=== PATIENT | male | born 1995 | race Caucasian/White ===

== ENCOUNTER 2016-11-08 11:53 | Day surgery (SDC) | payer OTHER ==
[2016-11-08] VITALS (7 sets, daily range): BP systolic 119–155; BP diastolic 66–99; PULSE 75–100; RESP 14–20; Ht 177.8 cm; Wt 86.2 kg
[~2016-11-08] VITALS: Ht 177.8 cm; Wt 86.2 kg
[2016-11-08] MEDS ORDERED: ONDANSETRON 4 MG INJ ONE (12:59)
[2016-11-08] MEDS ORDERED: METOCLOPRAMIDE 10 MG INJ ONE (12:59)
[2016-11-08] MEDS ORDERED: ROCURONIUM 50 MG INJ ONE (12:59)
[2016-11-08] MEDS ORDERED: SUCCINYLCHOLINE CHLORIDE 100 MG/5 ML SYG IV ONE (12:59)
[2016-11-08] MEDS ORDERED: FENTAnyl 50 MCG/ML VIAL ONE (12:59)
[2016-11-08] MEDS ORDERED: PROPOFOL 20 ML ONE (12:59)
[2016-11-08] MEDS ORDERED: FENTAnyl 50 MCG/ML VIAL IV PRN ×2 (13:00)
[2016-11-08] MEDS ORDERED: HYDROmorphONE (0.2 MG/ML) 10ML SYG IV PRN ×3 (13:00)
[2016-11-08] MEDS ORDERED: ONDANSETRON 4 MG INJ IV PRN (13:00)
[2016-11-08] MEDS ORDERED: MEPERIDINE 25 MG INJ IV PRN (13:00)
[2016-11-08] MEDS ORDERED: morphine 2 MG INJ IV PRN (14:00)
[2016-11-09] MEDS ORDERED: HYDR-902 PO (06:26)
[2016-11-09] MEDS ORDERED: ONDA4TAB95 PO (06:26)
[2016-11-09] MEDS ORDERED: ACET-141 PO (06:26)
[2016-11-09] MEDS ORDERED: HYDR-906 PO (06:44)
[2016-11-09] MEDS ORDERED: ONDA4TAB11 PO (08:15)
[2016-11-09] MEDS ORDERED: NAPR-260 PO (08:15)
== END 2016-11-08 15:55 | disposition home or self-care (01) ==
LOC: SDS 11:53
PROVIDERS: ATTEND Otolaryngology
DX: J35.01 Chronic tonsillitis (principal)
CPT/HCPCS: 42821; 88304; J2175; J2270; J2405; J2765; J3010; J7999

== ENCOUNTER 2016-11-09 05:25 | Emergency (ER) | payer OTHER ==
[~2016-11-09] VITALS: Ht 177.8 cm; Wt 86.5 kg
[2016-11-09 05:29] VITALS: Ht 177.8 cm; Wt 86.5 kg
[2016-11-09 05:42] VITALS: TEMP 99
[2016-11-09] MEDS ORDERED: KETOROLAC 30 MG INJ IV STA (06:15)
[2016-11-09] MEDS ORDERED: ONDANSETRON 4 MG INJ IV STA (06:16)
[2016-11-09] MEDS ORDERED: HYDR-902 PO (06:26)
[2016-11-09] MEDS ORDERED: ONDA4TAB95 PO (06:26)
[2016-11-09] MEDS ORDERED: ACET-141 PO (06:26)
[2016-11-09] MEDS ORDERED: FLUTICASONE 0.05% 16 GM NAS SPRAY NASAL ONE (06:30)
[2016-11-09] MEDS ORDERED: HYDROCODONE/APAP (5/325) TAB PO ONE (06:30)
[2016-11-09] MEDS ORDERED: HYDR-906 PO (06:44)
[2016-11-09] MEDS ORDERED: NAPR-260 PO (08:15)
[2016-11-09] MEDS ORDERED: ONDA4TAB11 PO (08:15)
--- NOTE | 2016-11-09 08:22 | ERD ---
ER Documentation Chief Complaint Date/Time DATE: 11/09/16 TIME: 08:17 Chief Complaint Pt reports difficulty swallowing post op TA yesterday HPI This 21-year-old male presents to the ER with increasing pain after his tonsillectomy yesterday. He was prescribed Percocet for the pain but parents say that he cannot tolerate this medicine. It makes him very dizzy and it makes him throw up. He also cannot breathe through his nose which makes it difficult to sleep. When he lays down he has some trouble swallowing his own secretions always sleeping. I reviewed the patient's EMR: Surgery was performed by Dr. Pickens yesterday and operative report states that after cautery the patient had no continued bleeding was otherwise uncomplicated. ROS All systems reviewed and are negative except as per history of present illness. Medications Home Meds Active Scripts Ondansetron (Zofran Odt) 4 Mg Tab.rapdis, 4 MG PO Q6, #10 Prov:ROSA MARIA MEZA DO 11/09/16 Naproxen* (Naprosyn*) 500 Mg Tablet, 500 MG PO BID Y for PAIN AND/OR INFLAMMATION, #14 TAB Prov:ROSA MARIA MEZA DO 11/09/16 Hydrocodone/Acetaminophen ([place] 5-325 Tablet) 1 Each Tablet, 1 EACH PO Q6, #20 TAB Prov:ROSA MARIA MEZA DO 11/09/16 Reported Medications Acetaminophen* (Acetaminophen*) 500 MG Extra Strength Tablet, 500 MG PO Q4H Y for PAIN AND OR ELEVATED TEMP, TAB 11/09/16 Ondansetron Hcl* (Ondansetron Hcl*) 4 Mg Tablet, 4 MG PO Q8, TAB 11/09/16 Hydrocodone/Acetaminophen ([place] 10-325 Tablet) 1 Each Tablet, 1 EACH PO, TAB 11/09/16 Allergies Allergies: Coded Allergies: No Known Allergy (Verified , 11/08/16) PMhx/Soc Medical and Surgical Hx: pt denies Medical Hx History of Surgery: Yes (R INGUINAL HERNIA, TONSILECTOMY) Anesthesia Reaction: No Hx Neurological Disorder: No Hx Respiratory Disorders: No Hx Cardiac Disorders: No Hx Psychiatric Problems: No Hx Miscellaneous Medical Probl: No Hx Alcohol Use: Yes (OCCASIONAL) Hx Substance Use: No Hx Tobacco Use: No Smoking Status: Never smoker Physical Exam Vitals Vital Signs Date Time Temp Pulse Resp B/P Pulse Ox O2 Delivery O2 Flow Rate FiO2 11/09/16 05:42 99.0 103 20 125/76 98 Room Air 11/09/16 05:29 99.0 109 20 120/90 98 Physical Exam Const: [] Mild distress Head: Atraumatic Eyes: Normal Conjunctiva ENT: Normal External Ears, Nose and Mouth. Oropharynx without bleeding, evidence of cauterized wounds. There is have inflammation but are patent. Neck: Full range of motion..~ No meningismus. Resp: Clear to auscultation bilaterally Cardio: Regular rate and rhythm, no murmurs Abd: Soft, non tender, non distended. Normal bowel sounds Results 24 hrs Current Medications Medications (Trade) Dose Ordered Sig/Nael Route PRN Reason Start Time Stop Time Status Last Admin Dose Admin Ketorolac Tromethamine (Toradol) 30 mg ONCE STAT IV 11/09/16 06:15 11/09/16 06:16 DC 11/09/16 06:47 Ondansetron HCl (Zofran Inj) 4 mg ONCE STAT IV 11/09/16 06:16 11/09/16 06:17 DC 11/09/16 06:47 Acetaminophen/ Hydrocodone Bitart ([place] (5/325)) 1 tab ONCE ONCE PO 11/09/16 06:30 11/09/16 06:31 DC 11/09/16 06:47 Fluticasone Propionate (Flonase 0.05% Nasal) 1 spray ONCE ONCE NASAL 11/09/16 06:30 11/09/16 06:31 DC 11/09/16 07:17 Procedures/MDM Postop tonsil pain. Perhaps oxycodone is too strong for the narcotic milena patient. Was given shot of Toradol as well as IV Zofran. After that he was given a [place] pill. He was observed for an hour and he is able to tolerate the [place] with no problems. Also given 2 sprays of Flonase in his nostrils which open up his nares and allowed him to breathe through his nose. He is currently feeling much better has no nausea and his pain is well controlled. I am going to discharge her with [place], Zofran ODT and naproxen. Provided him with information from Dr. Pickens instructed him to call Dr. Pickens first thing on Saturday. Believe he would do well with this new medication regimen to provide return precautions as well. Departure Diagnosis: Primary Impression: Post-operative nausea and vomiting Additional Impression: Post-op pain Condition: Stable Patient Instructions: Post Op Wound Check, General Referrals: AUGUSTINA PICKENS MD Additional Instructions: Call your ENT doctor TOMORROW for an appointment during the next 2-3 days.See the doctor sooner or return here if your condition worsens before your appointment time. ROSA MARIA MEZA DO Nov 09, 2016 08:22
[2016-11-09 08:42] VITALS: BP 108/69; PULSE 87; RESP 18
== END 2016-11-09 08:43 | disposition home or self-care (01) ==
LOC: E/R 05:25
DX: R11.2 Nausea with vomiting, unspecified (principal); R07.0 Pain in throat
CPT/HCPCS: J1885; J2405; 96374; 96375